=== PATIENT | female | born 1975 | race African-American/Black ===

== ENCOUNTER 2024-04-22 09:13 | Day surgery (SDC) | payer MEDICAID ==
[~2024-04-22] VITALS: Ht 160 cm; Wt 135.3 kg
[2024-04-22] MEDS ORDERED: LIDOCAINE 2%, 20 ML MDV ONE (10:00)
[2024-04-22] MEDS ORDERED: IOHEXOL 300 mgI/mL, 50 mL INFUS..BTL IV ONE (10:00)
[2024-04-22] MEDS ORDERED: BUPIVACAINE /PF 0.25% 30 ML VIAL INJ ONE (10:00)
[2024-04-22] MEDS ORDERED: NORMAL SALINE 10 ML VIAL ONE (10:00)
[2024-04-22] MEDS ORDERED: methylPREDNISolone ACETATE 40 MG/ML ONE (10:00)
[2024-04-22 10:06] LABS: HCG,QUAL RESULT NEGATIVE (NEGATIVE)
[2024-04-22] MEDS ORDERED: fentaNYL CITRATE/PF 100 MCG/2 ML AMP ONE (10:23)
[2024-04-22] MEDS ORDERED: MIDAZOLAM HCL 5 MG/5 ML VIAL ONE (10:24)
[2024-04-22] MEDS: fentaNYL CITRATE/PF 100 MCG/2 ML AMP IVP ONE (11:00)
[2024-04-22] MEDS: MIDAZOLAM HCL 5 MG/5 ML VIAL IVP ONE ×2 (11:00→11:02)
[2024-04-22 13:47] VITALS: BP_SYST 100; PULSE 80; RESP 16; TEMP 98; O2SAT 99
== END 2024-04-22 12:00 | disposition home or self-care (01) ==
LOC: SDS 09:13 → SMU 09:17 → SDS 12:00
PROVIDERS: ATTEND Internal Medicine
DX: M51.16 Intervertebral disc disorders with radiculopathy, lumbar region (principal); E66.01 Morbid (severe) obesity due to excess calories; M19.90 Unspecified osteoarthritis, unspecified site; Z68.43 Body mass index [BMI] 50.0-59.9, adult; Z91.013 Allergy to seafood; Z98.891 History of uterine scar from previous surgery; Z98.890 Other specified postprocedural states; Z79.899 Other long term (current) drug therapy
CPT/HCPCS: 62323; 84703; J3490; J2250; J3010; Q9967; J1010; 76000; J1030; J2001